=== PATIENT | female | born 1960 | race Caucasian/White ===

== ENCOUNTER 2018-05-16 15:54 | Emergency (ER) | payer OTHER ==
[~2018-05-16] VITALS: Ht 167.6 cm; Wt 149.7 kg
[~2018-05-16 15:54] MED LIST: CEPH500 PO; CITA20 PO; CODACE30 PO; CYCL10 PO; HYDACE5325 PO; HYDCHL25 PO; IRON150C PO; LISI10 PO; LISI5 PO; METPHE27ER PO; OXYACE5T PO; STOOL SOFTNER; WARF1 PO; Zantac150 MG PO; [UNRECOGNIZED DRUG - OTHER] PO
[2018-05-16 17:07] LABS: BASOPHILS ABSOLUTE AUTO 0.03 K/mm3 (0.00-0.23); BASOPHILS PERCENT AUTO 0 % (0-2); EOSINOPHILS ABSOLUTE AUTO 0.08 K/mm3 (0.00-0.68); EOSINOPHILS PERCENT AUTO 1 % (0-6); Hematocrit 46.7 % (33.0-51.0); Hemoglobin 14.6 g/dL (11.5-16.0); IMMATURE GRAN ABSOLUTE AUTO 0.03 K/mm3 (0.00-0.10); IMMATURE GRAN PERCENT AUTO 0 % (0-1); LYMPHOCYTES ABSOLUTE AUTO 0.98 K/mm3 (0.84-5.20); LYMPHOCYTES PERCENT AUTO 13 % (21-46); MONOCYTES ABSOLUTE AUTO 0.56 K/mm3 (0.16-1.47); MONOCYTES PERCENT AUTO 7 % (4-13); Mean Corpuscular HGB 28.3 pg (26.0-34.0); Mean Corpuscular HGB Conc 31.3 g/dL (31.5-36.5); Mean Corpuscular Volume 91 fL (80-100); Mean Platelet Volume 10.9 fL (9.1-12.4); NEUTROPHILS ABSOLUTE AUTO 5.91 K/mm3 (1.96-9.15); NEUTROPHILS PERCENT AUTO 78 % (41-73); Platelet Count 254 K/mm3 (150-400); RDW Standard Deviation 49.7 fL (35.1-46.3); Red Blood Cell Count 5.15 M/mm3 (3.80-5.20); White Blood Cell Count 7.59 K/mm3 (4.00-11.30)
[2018-05-16 17:29] LABS: Alanine Aminotransfer (ALT/SGP 22 U/L (12-78); Albumin, Blood 3.5 g/dL (3.4-5.0); Albumin/Globulin Ratio 0.9 (0.8-1.8); Alk Phos 88 U/L (50-136); Anion Gap 6 mmol/L (6-16); Aspartate Aminotrans (AST/SGOT 14 U/L (12-37); Bilirubin, Total 0.8 mg/dL (0.1-1.0); Blood Urea Nitrogen 21 mg/dL (8-24); Bun/Creatinine Ratio 27.9 (12.0-20.0); CO2, Blood 28 mmol/L (21-32); Calcium, Blood 8.9 mg/dL (8.5-10.1); Chloride, Blood 103 mmol/L (98-108); Creatinine, Blood 0.75 mg/dL (0.40-1.00); Glomerular Filtration Rate >60 (60-); Glucose, Blood 119 mg/dL (70-99); Potassium, Blood 4.4 mmol/L (3.5-5.5); Sodium, Blood 137 mmol/L (136-145); Total Protein, Blood 7.5 g/dL (6.4-8.2)
[2018-05-16] MEDS ORDERED: METPHE27ER PO (21:06)
[2018-05-16] MEDS ORDERED: FISH OIL 1,0001 EAC1 PO (21:07)
[2018-05-16] MEDS ORDERED: Norco 5-325 Ta1 EACH PO (21:54)
[2018-05-16] MEDS ORDERED: Prednisone20 MG PO (21:54)
== END 2018-05-16 22:04 | disposition home or self-care (01) ==
LOC: ER 15:54
PROVIDERS: Physician Assistant
DX: M24.841 Other specific joint derangements of right hand, not elsewhere classified (principal); Z79.01 Long term (current) use of anticoagulants; Z79.899 Other long term (current) drug therapy; I10 Essential (primary) hypertension; Z87.891 Personal history of nicotine dependence
CPT/HCPCS: 36415; 73140; 80053; 85025; J2930

== ENCOUNTER 2018-08-29 20:48 | Emergency (ER) | payer OTHER ==
[~2018-08-29] VITALS: Ht 167.6 cm; Wt 145.2 kg
[~2018-08-29 20:48] MED LIST changes: +FISH OIL 1,0001 EAC1 PO; +Norco 5-325 Ta1 EACH PO; +Prednisone20 MG PO
[2018-08-29] MEDS ORDERED: CITA20 PO (21:27)
[2018-08-29] MEDS ORDERED: Zantac150 MG PO (21:27)
[2018-08-29] MEDS ORDERED: Prinivil10 MG PO (21:27)
== END 2018-08-29 21:34 | disposition home or self-care (01) ==
LOC: ER 20:48
DX: Z76.0 Encounter for issue of repeat prescription (principal); I10 Essential (primary) hypertension; G25.81 Restless legs syndrome; Z87.891 Personal history of nicotine dependence; Z79.899 Other long term (current) drug therapy
CPT/HCPCS: 99281